=== PATIENT | female | born 1955 | race Caucasian/White ===

== ENCOUNTER 2016-08-04 09:16 | Outpatient (CLI) | payer OTHER ==
[~2016-08-04] VITALS: Ht 167.6 cm; Wt 113.4 kg
--- NOTE | ~2016-08-04 | P ---
[facility] [place] [address] PROCEDURE REPORT Name: CHALINO SKINNER Room #: 208-P [facility]#: [id number] Admission: 08/04/16 Attend Phys: Deny Gaitan MD Discharge: Date of : 59 Report #: [id number] THIS REPORT FOR: //name// CC: Deny MorganRose PROCEDURE: ICD implantation. PREOPERATIVE DIAGNOSIS: Nonischemic cardiomyopathy. POSTOPERATIVE DIAGNOSIS: Nonischemic cardiomyopathy. HISTORY: The patient is a 60-year-old female with a history of nonischemic cardiomyopathy, left bundle-branch block and class 3 heart failure symptoms, who is here for Bi-V ICD implantation. ANESTHESIA: The patient underwent MAC anesthesia with no anesthesia-related complications. DESCRIPTION OF PROCEDURE: The patient underwent informed consent. We discussed the details of the procedure including the risks, which include but not limited to bleeding, infection, vascular damage, cardiac perforation, pneumothorax. She understood these risks and is willing to proceed. As such, she is brought to the EP laboratory in a fasting and sedated state, prepped and draped in a sterile fashion and received IV antibiotics prior to the initiation of the procedure. A venogram was performed showing patency of the left axillary vein. Next, I injected 20 mL of lidocaine below the level of left clavicle. Incision was made, pocket was created over the prepectoral fascia, and access was obtained 3 times the left axillary vein. Next, sheaths were positioned using the modified Seldinger technique. A RV lead was positioned in the right ventricular apex with adequate pacing and sensing thresholds, and an atrial lead was positioned in the right atrial appendage with adequate pacing and sensing thresholds. These leads were sutured to the prepectoral fascia. Next, my standard [employer] coronary sinus guide sheath was placed into the right atrium, and I attempted to localize the coronary sinus. This was challenging, and I performed several atrial venograms trying to find the coronary sinus ostium. I looked inferiorly and in the mid atrium. Eventually, I was able to get a Wholey wire into what I thought was a coronary sinus. In an AZERBAIJANI projection, the wire went out laterally. I tried advancing my sheath over this wire, but it would not advance past a certain point at a septal location. When I would perform injections with contrast at this site, it would cause staining of the myocardium, but I would not actually see the coronary sinus. I was unsure what this was, but I entered into this branch several times, it was very quiet. I attempted to place a Glidewire into this and tried to advance my sheath over this, and this would not work either. I also took a quadripolar catheter thinking that maybe if there was a slight stenosis or valve, I could [facility] [address] [place] [address] PROCEDURE REPORT Name: CHALINO SKINNER Room #: 208-P [id number] Admission: 08/04/16 Attend Phys: Deny Gaitan MD Discharge: Date of : 59 Report #: [id number] advance the quadripolar catheter into this, but again this was unsuccessful. I switched to a larger curve sheath, which did allow me to enter this branch several times, and I also entered into more inferior portion of this vessel which may have been the middle cardiac vein. Again, I attempted to advance my sheath over this, and this was unsuccessful. Again injecting contrast did not show the coronary sinus at this site. Fluoroscopically, I felt like I was way too low to be in an ASD or PFO. Next, I placed the wire into this vessel again, and then, trying to u use an inner sheath. I was hoping I could track this into the vessel; however, this was not successful either. I probably spent over an hour trying to engage this vessel, and this was unsuccessful. Given that I was not entirely clear if this was even the true coronary sinus ostium, I opted to stop further attempts, manipulating my sheaths at this location. As such, I pulled this long sheath out, and I pulled my 10-Italian short sheath and held pressure until hemostasis was obtained. I then took a standard Bi-V ICD and capped the LV lead and placed it in the pocket. The pocket was irrigated with vancomycin and then closed in 3 layers using 2-0 for the deep layer, 3-0 for the mid layer and 4-0 for the subcuticular layer. Surgical glue was placed to the outer skin layer. The implanted device was [employer] model # [id number], serial #[id number]; RV lead was a [employer] model #7122Q, 58 cm, serial #[id number] with a R-wave of greater than 12 millivolts, pacing impedance of 590 ohms and the pacing threshold 0.5 volts at 0.5 milliseconds. The atrial lead was a [employer] model #2088TC, 52 cm, serial [id number] with a P-wave of 3 millivolts, pacing impedance of 630 ohms and pacing threshold 0.75 volts at 0.5 milliseconds. The device was programmed to the DDDR 60-130 mode. The VT zone was set at 180-220 with ATP while charging followed by max output shocks and the VF zone was set at greater than 220 with ATP while charging followed by max output shocks. CONCLUSIONS: 1. Successful dual-chamber implantable cardioverter-defibrillator implantation. 2. Unsuccessful placement of a left ventricular lead due to either atypical coronary sinus takeoff versus a possible coronary sinus narrowing or stenosis that did not allow for advancement of my coronary sinus sheath into the vessel. RECOMMENDATIONS: The patient will be monitored overnight, receiving IV antibiotics. We will set her up for evaluation by CT surgery to discuss risks and benefits of undergoing a potential epicardial lead placement. By: [id number] Deny Gaitan MD /nt
[~2016-08-04 09:16] MED LIST: AMARYL4 MG PO; ASPIR 8181 M1 PO; ASPIRIN EC81 M1 PO; AUGMENTIN 875-1 EACH PO; CAL-MAG-ZINC T1 EACH PO; CALCIUM-MAGNES1 EAC2 PO; FUROSEMIDE 40 M40 M1 PO; GEMFIBROZIL 60600 MG PO; GLUCOPHAGE500 MG PO; IBUPROFEN 400400 M1 PO; IRON325 PO; JANUVIA100 MG PO; KEFLEX500 MG PO; LIPITOR40 MG PO; LISINOPRIL20 MG PO; LISINOPRIL5 MG PO; LORATIDINE 10 M10 M1 PO; LORTAB 5 MG/5001 TA1 PO; LORTAB 5 MG/5001 TAB PO; MULTIVITAMINS PO; NORCO 5-325 TA1 EACH PO; ONGLYZA5 MG PO; PRAVACHOL40 MG PO; SYNTHROID150 MCG PO; TOPROL XL25 MG PO; TUMS X-STR300 MG PO; VITAMIN D32000 UNI1 PO; VITAMIN E400 UNIT PO
[2016-08-04] MEDS ORDERED: COREG6.25 MG PO (09:38)
[2016-08-04] MEDS ORDERED: ALDACTONE25 MG PO (09:38)
[2016-08-04 09:43] VITALS: BP 115/67
[2016-08-04 09:59] LABS: HEMATOCRIT 38.1 % (37.0-47.0); HEMOGLOBIN 12.6 gm/dL (12.0-15.0); MCH 28.8 pg (26.0-34.0); MCHC 33.2 g/dL (28.0-37.0); MCV 86.9 fL (80.0-100.0); RBC 4.38 mil/uL (4.20-5.00); RDW 13.6 % (10.5-14.5)
[2016-08-04 10:11] LABS: CALCIUM 8.2 mg/dL (8.5-10.1); POTASSIUM 4.9 mmol/L (3.5-5.1)
[2016-08-04 10:13] LABS: APTT 26.2 Seconds (24.5-32.8); PROTIME 10.1 Seconds (9.3-11.4)
[2016-08-04 10:16] LABS: ALBUMIN 4.1 g/dL (3.4-5.0); TOTAL BILIRUBIN 0.3 mg/dL (<0.1-1.0); TOTAL PROTEIN 7.7 g/dL (6.4-8.2)
[2016-08-04 16:00] VITALS: BP 96/55
[2016-08-04 20:13] VITALS: BP 116/62
[2016-08-04 23:55] VITALS: BP 101/56
[2016-08-05 04:11] VITALS: BP 110/65
[2016-08-05 07:35] VITALS: BP 111/48
[2016-08-05 10:24] VITALS: BP 111/48
[2016-08-05 12:57] VITALS: BP 111/48
== END 2016-08-05 12:58 | disposition home or self-care (01) ==
LOC: CATH 09:16 → 2N 15:53 → CATH 08-05 12:58
PROVIDERS: Internal Medicine Cardiovascular Disease
DX: I42.8 Other cardiomyopathies (principal); I44.7 Left bundle-branch block, unspecified; I10 Essential (primary) hypertension; E11.9 Type 2 diabetes mellitus without complications; I25.10 Atherosclerotic heart disease of native coronary artery without angina pectoris; I48.92 Unspecified atrial flutter; I50.9 Heart failure, unspecified; E78.00 Pure hypercholesterolemia, unspecified; E66.09 Other obesity due to excess calories; E78.5 Hyperlipidemia, unspecified; Z90.49 Acquired absence of other specified parts of digestive tract; Z98.890 Other specified postprocedural states; Z79.01 Long term (current) use of anticoagulants